=== PATIENT | male | born 2005 | race Two or more races ===

== ENCOUNTER 2025-02-16 19:49 | Emergency (ER) | payer OTHER ==
[~2025-02-16] VITALS: Ht 170.2 cm; Wt 85.1 kg
[2025-02-16 21:35] VITALS: BP 150/76; PULSE 81; RESP 19; TEMP 99; O2SAT 99
--- NOTE | 2025-02-16 21:39 | ED.PDOC ---
Eye-HPI HPI Comments THIS IS A 19-YEAR-OLD MALE PRESENTS TO THE ED RIGHT EAR PAIN. STATES OVER THE PAST 2 DAYS RIGHT EAR HAS FELT BLOCKED WITH MUFFLED SOUND. DENIES FEVERS, CHILLS, NAUSEA, VOMITING, DIZZINESS DENIES ANY UNDER WATER ACTIVITIES REPORTS NO KNOWN INJURY. Chief Complaint: Earache Time Seen by MD: 19:54 Reviewed Notes: Nurses Notes, Medications, Allergies Home Meds Active Scripts [id number] (Otic) (Cortisporin Otic Susp) [address], 4 DROP RIGHT EAR TID for 5 Days, #4 ML Prov:JARROD RAMIREZ DAMION 02/16/25 Information Source: Patient Mode of Arrival: Ambulatory Past Medical History PAST MEDICAL HISTORY: Denies Surgical History: Denies all surgeries Family History Family History: Unknown Social History Smoker: Non-Smoker Alcohol: Denies ETOH Use Drugs: Denies Drug Use Constitutional: denies: chills, diaphoresis, fatigue, fever, malaise, sweats, weakness, others EENTM: reports: ear pain; denies: blurred vision, double vision, ear bleeding, ear discharge, ear drainage, ear ringing, eye pain, eye redness, hearing loss, mouth pain, mouth swelling, nasal discharge, nose bleeding, nose congestion, nose pain, photophobia, tearing, throat pain, throat swelling, voice changes, others Respiratory: denies: cough, hemoptysis, orthopnea, SOB at rest, shortness of breath, SOB with excertion, stridor, wheezing, others Cardiovascular: denies: chest pain, dizzy spells, diaphoresis, Dyspnea on exertion, edema, irregular heart beat, left arm pain, lightheadedness, palpitations, PND, syncope, others Gastrointestinal: denies: abdomen distended, abdominal pain, blood streaked bowels, constipated, diarrhea, dysphagia, difficulty swallowing, hematemesis, melena, nausea, poor appetite, poor fluid intake, rectal bleeding, rectal pain, vomiting, others Genitourinary: denies: burning, dysuria, flank pain, frequency, hematuria, incontinence, penile discharge, penile sore, pain, testicle pain, testicle swelling, urgency, others Neurological: denies: dizziness, fainting, headache, left sided numbness, left sided weakness, numbness, paresthesia, pre-existing deficit, right sided numbness, right sided weakness, seizure, speech problems, tingling, tremors, w eakness, others Musculoskeletal: denies: back pain, gout, joint pain, joint swelling, muscle pain, muscle stiffness, neck pain, others Integumetry: denies: bruises, change in color, change in hair/nails, dryness, laceration, lesions, lumps, rash, wounds, others Allergic/Immunocompromised: denies: Difficulty Healing, Frequent Infections, Hives, Itching, others Hematologic/Lymphatic: denies: anemia, blood clots, easy bleeding, easy bruising, swollen glands, others Endocrine: denies: excessive hunger, excessive sweating, excessive thirst, excessive urination, flushing, intolerance to cold, intolerance to heat, unexplained weight gain, unexplained weight loss, others Psychiatric: denies: anxiety, bipolar disorder, depression, hopeless, panic disorder, schizophrenia, sleepless, suicidal, others Physical Exam General Appearance: No Apparent Distress, Normal HEENT: Pharynx Normal, TM Abnormal (R) (EAR IMPACTION RIGHT EAR. PROCEDURE WE WILL LOOK WAX NOTED CANAL ERYTHEMA AND TRACE OF ERYTHEMA ON THE TM, TYMPANIC MEMBRANE IS INTACT NO NOTED DRAINAGE.) Neck: Full Range of Motion, Non-Tender, Normal, Normal Inspection Respiratory: Chest Non-Tender, Lungs Clear, No Accessory Muscle Use, No Respiratory Distress, Normal Breath Sounds Cardiovascular: No Edema, No JVD, No Murmur, No Gallop, Normal Peripheral Pulses, Regular Rate/Rhythm Breast Exam: Deferred Gastrointestinal: No Organomegaly, Non Tender, No Pulsatile Mass, Normal Bowel Sounds, Soft Genitalia: Deferred Pelvic: Deferred Rectal: Deferred Extremities: No calf tenderness, Normal capillary refill, Normal inspection, Normal range of motion, Non-tender, No pedal edema Musculoskeletal : Apperance: Normal Neurologic: Alert, guest experience manager II-XII nml as Tested, No Motor Deficits, Normal Affect, Normal Mood, No Sensory Deficits Cerebellar Function: Normal Reflexes: Normal Skin: Dry, Normal Color, Warm Lymphatic: No Adenopathy Was a procedure done? Was a procedure done?: Yes Sedation Sedation?: No Informed consent obtained: Yes Foreign Body Removal Foreign body in: Ear Anesthetic: Nothing Prep: Irrigation Procedure: Removed Informed consent obtained: Yes Risks/benefits/alt described: Yes Notes EAR WAX REMOVED PATIENT TOLERATED WELL EENT DIFF Eye: N/A Ear: Cerumen Impaction, Foreign Body, Otitis Externa, Barotrauma, Otitis Media, Perforation X-Ray, Labs, Meds, VS Vital Signs Date Time Temp Pulse Resp B/P (MAP) Pulse Ox O2 Delivery O2 Flow Rate FiO2 02/16/25 21:35 99.0 81 19 150/76 (100) 99 99.0 02/16/25 20:01 99.3 80 18 158/96 (116) 96 99.3 X-Ray, Labs, Meds, VS Comment SEE PROCEDURE NOTE. TRIAL ANTIBIOTIC EAR DROPS FOR THE OTITIS EXTERNA. ADVISED TO TAKE MEDICATION PRESCRIBED SIDE EFFECTS ASSESS. FOLLOW UP WITH HIS PCP IN 2 DAYS FOR RE-EVALUATION. TYLENOL OR MOTRIN NEEDED FOR THE PAIN PER LABELED DOSING INSTRUCTIONS. ER RETURN PRECAUTIONS GIVEN PATIENT INDICATES UNDERSTANDING AGREES WITH DISCHARGE PLAN OF CARE Time of 1ST Reevaluation: 21:59 Reevaluation 1ST: Improved Patient Education/Counseling: Diagnosis, Treatment, Prognosis, Need For Follow Up Family Education/Counseling: No Family Present Departure 1 Departure Time of Disposition: 21:58 Impression: Primary Impression: Right ear impacted cerumen Disposition: 01 HOME / SELF CARE / HOMELESS Condition: Stable e-Prescriptions [id number] (Otic) (Cortisporin Otic Susp) [address] 4 DROP RIGHT EAR TID for 5 Days, #4 ML Prov: JARORD RAMIREZ 02/16/25 Discharged With: Self Critical Care Note Critical Care Time?: No Stability Stability form required: JARROD Palma Feb 16, 2025 21:39
[2025-02-16] MEDS ORDERED: COROSUS RIGHT EAR (22:01)
== END 2025-02-16 22:25 | disposition home or self-care (01) ==
LOC: ER 19:49
DX: H61.21 Impacted cerumen, right ear (principal)
CPT/HCPCS: 69209